=== PATIENT | female | born 1960 | race Hispanic/Latino ===

== ENCOUNTER → 2018-06-07 | Outpatient (CLI) | payer OTHER | END | disposition home or self-care (01) | LOC: SHCH 16:21 | PROVIDERS: ATTEND Internal Medicine Cardiovascular Disease | DX: I35.8 Other nonrheumatic aortic valve disorders (principal); I35.0 Nonrheumatic aortic (valve) stenosis; I48.0 Paroxysmal atrial fibrillation | CPT/HCPCS: 93306 ==

== ENCOUNTER 2018-09-29 05:29 | Day surgery (SDC) | payer OTHER ==
[~2018-09-29] VITALS: Ht 177.8 cm; Wt 209.1 kg
[2018-09-29] VITALS (7 sets, daily range): BP systolic 102–130; BP diastolic 55–78
[~2018-09-29 05:29] MED LIST: ALBU2.5V2 IH; ALLO300T2 PO; ASPI-555 PO; ATOR-2 PO; CARV25TA PO; CETI-101 PO; DOCU-116 PO; FEXO180T94 PO; FURO40TA5 PO; IBUP200C5 PO; INSU100I3 SQ; INSU300I SQ; IRBE300T19 PO; LEVO112T7 PO; MULT-1203 PO; NYST15CR2 TP; OMEG-112 PO; POTA20PA32 PO; PREG75 PO; RIVA20TA PO
[2018-09-29] MEDS ORDERED: SODIUM CHLORIDE 0.9% 1000ML 1,000 ML IV ONE (05:53)
[2018-09-29] MEDS ORDERED: LIDOCAINE HCL-MPF 2% 5ML VIAL ONE (06:43)
== END 2018-09-29 07:55 | disposition home or self-care (01) ==
LOC: ENDO 05:29 → DAH 05:29 → ENDO 07:55
PROVIDERS: ATTEND Internal Medicine
DX: K63.5 Polyp of colon (principal); K29.50 Unspecified chronic gastritis without bleeding; K64.0 First degree hemorrhoids; K57.30 Diverticulosis of large intestine without perforation or abscess without bleeding; K44.9 Diaphragmatic hernia without obstruction or gangrene; I11.0 Hypertensive heart disease with heart failure; I50.9 Heart failure, unspecified; E11.9 Type 2 diabetes mellitus without complications; E78.5 Hyperlipidemia, unspecified; J45.909 Unspecified asthma, uncomplicated; M81.0 Age-related osteoporosis without current pathological fracture; I48.91 Unspecified atrial fibrillation; M19.90 Unspecified osteoarthritis, unspecified site; E03.9 Hypothyroidism, unspecified; Z88.5 Allergy status to narcotic agent; Z98.84 Bariatric surgery status; Z79.01 Long term (current) use of anticoagulants; Z79.899 Other long term (current) drug therapy; Z98.890 Other specified postprocedural states; Z90.710 Acquired absence of both cervix and uterus; Z79.4 Long term (current) use of insulin; Z79.82 Long term (current) use of aspirin; Z82.49 Family history of ischemic heart disease and other diseases of the circulatory system; Z83.3 Family history of diabetes mellitus; Z82.5 Family history of asthma and other chronic lower respiratory diseases
CPT/HCPCS: 43239; 45385; 82948 ×2; 88305; A4606; J3490; J7030